=== PATIENT | male | born 1965 | race Caucasian/White ===

== ENCOUNTER 2016-12-01 12:38 | Emergency (ER) | payer BC ==
[2016-12-01] MEDS ORDERED: Diphtheria,Pertussis(Acell),Tetanus Vaccine 0.5 ML SDV inactive IM ONE (13:07)
[2016-12-01] MEDS ORDERED: Lidocaine 1% 50 ML MDV SUBCUT STA (13:07)
--- NOTE | 2016-12-01 13:07 | EDM.PDOC ---
ED HPI Skin/Rash - General Chief Complaint: Laceration Stated Complaint: Left hand laceration Time Seen by Provider: 12/01/16 13:00 Source: Reports: Patient, RN notes reviewed History Limitations: Reports: No limitations - History of Present Illness INITIAL COMMENTS - FREE TEXT/NARRATIVE: 51 year old male presents to the ED with a laceration to thenar web between the thumb and index finger. He was laying gregor and accidentally cut his hand with a new razor blade. He has full range of motion to his thumb and index finger. Injury occurred shortly prior to arrival. Last tetanus is unknown. Patient was diaphoretic and pale in triage. He is diabetic. Bedside glucose was 74. Nursing staff provided apple juice and symptoms improved. 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) - Related Data Allergies Allergy/AdvReac Type Severity Reaction Status Date / Time gabapentin Allergy Edema Verified 12/01/16 12:52 Home Meds: Ambulatory Orders Medication Instructions Recorded Confirmed Cyclobenzaprine [Flexeril] 10 mg PO TID PRN 09/14/14 12/01/16 DULoxetine [Cymbalta] 30 mg PO DAILY 09/14/14 12/01/16 Diazepam [Valium] 5 mg PO DAILY 09/14/14 12/01/16 OXcarbazepine [Trileptal] 150 mg PO BID 09/14/14 12/01/16 Insulin Lispro [Humalog] 0 units SQ ASDIRECTED PRN 09/15/14 12/01/16 Omeprazole [Prilosec] 20 mg PO DAILY 09/15/14 12/01/16 Tresiba 1 dose SQ DAILY 12/01/16 12/01/16 Past Medical History Gastrointestinal History: Reports: GERD Musculoskeletal History: Reports: Arthritis, Other (see below) Other Musculoskeletal History: muscle spasms Neurological History: Reports: Other (see below) Other Neuro History: TBI 2009, valium taken for balance issues as a result of the TBI Endocrine/Metabolic History: Reports: Diabetes, type I - Past Surgical History Neurological Surgical History: Reports: C-Spine, Other (see below) Other Neurological Surgeries/Procedures: C6-C7 fusion Musculoskeletal Surgical History: Reports: Carpal tunnel, Other (see below) Other Musculoskeletal Surgeries/Procedures:: ulnar release Social & Family History - Family History Family Medical History: Noncontributory - Tobacco Use Smoking Status *Q: Current Every Day Smoker Years of Tobacco use: 30 Packs/Tins Daily: 0.5 Second Hand Smoke Exposure: Yes - Caffeine Use Caffeine Use: Reports: Coffee - Alcohol Use Days Per Week of Alcohol Use: 0 Number of Drinks Per Day: 0 Total Drinks Per Week: 0 - Recreational Drug Use Recreational Drug Use: No Drug Use in Last 12 Months: No ED ROS GENERAL - Review of Systems Review Of Systems: See Below Musculoskeletal: Reports: hand pain Skin: Reports: wound Neurological: Reports: No Symptoms. Denies: Numbness, Tingling, Weakness ED EXAM, SKIN/RASH Exam: See Below Exam Limited By: No limitations General Appearance: alert, WD/WN, no apparent distress Extremities: normal inspection, normal range of motion, non-tender, other (full ROM to thumb and index finger ) Neurological: alert, oriented, normal cognition, no motor/sensory deficits Skin: Warm, Dry, Normal color, Other (deep, linear, 2cm laceration to the thenar area of the left hand, between the thumb and index finger. ) ED SKIN PROCEDURES - Laceration/Wound Repair Left Hand Lac/wound length in cm: 2.5 Appearance: subcutaneous, linear, clean Distal NVT: neuro & vascular intact, no tendon injury Anesthetic type: local Local anesthesia - Lidocaine (Xylocaine): 1% plain Local anesthetic volume: 4cc Exploration/Debridement/Repair: wound explored, in a bloodless field, explored to base, no foreign material found Closed with: sutures Suture size: 4-0 # of sutures: 5 Suture type: nylon, interrupted, simple Sterile dressing applied: nurse Tetanus status addressed: Yes Complications: No Course - Vital Signs Last Recorded V/S: Last Vital Signs Temp 96 F 12/01/16 12:45 Pulse 52 L 12/01/16 14:05 Resp 16 12/01/16 14:05 BP 146/87 H 12/01/16 14:05 Pulse Ox 97 12/01/16 14:05 - Orders/Labs/Meds Orders: Active Orders 24 hr Category Date Time Status Vaccines to be Administered [RC] PER UNIT ROUTINE Care 12/01/16 13:07 Ordered Meds: Medications Discontinued Medications Generic Name Dose Route Start Last Admin Trade Name Freq PRN Reason Stop Dose Admin Diphtheria/Tetanus/Acell Pertussis 0.5 ml 12/01/16 13:07 12/01/16 13:14 Boostrix IM 12/01/16 13:08 0.5 ml .ONCE ONE Administration Lidocaine HCl 50 ml 12/01/16 13:07 12/01/16 13:16 Xylocaine 1% SUBCUT 12/01/16 13:08 50 ml NOW STA Administration Departure - Departure Time of Disposition: 13:44 Disposition: Home, Self-Care 01 Condition: good Clinical Impression: Laceration Instructions: Laceration Care, Adult, [id number] Referrals: Alisson Dougherty, [facility] [Primary Care Provider] - Forms: ED Department Discharge Additional Instructions: Laceration with suture repair Try to keep initial dressing in place for 24 hours After 24 hours, you can gently wash the wound with gentle soap and water Do not submerge the area in water until the sutures are out Apply antibiotic ointment and keep the wound covered for first 2-3 days then leave open to air Keep wound covered if there is a chance it can get dirty Sutures need to be removed in 7-10 days [facility] removes sutures for free. Their hours are 8am-6pm Friday through Friday. Return to clinic if signs or symptoms of infection arise, including increased redness, swelling, drainage, or fever Tylenol or Ibuprofen as needed for pain - My Orders Last 24 Hours: My Active Orders 12/01/16 13:07 Vaccines to be Administered [RC] PER UNIT ROUTINE - Assessment/Plan Last 24 Hours: My Active Orders 12/01/16 13:07 Vaccines to be Administered [RC] PER UNIT ROUTINE
[2016-12-01 14:29] VITALS: BP 146/87
== END 2016-12-01 13:53 | disposition home or self-care (01) ==
LOC: JD.ED 12:38
DX: S61.412A Laceration without foreign body of left hand, initial encounter (principal); W45.8XXA Other foreign body or object entering through skin, initial encounter; Z23 Encounter for immunization; Z79.899 Other long term (current) drug therapy; Z88.8 Allergy status to other drugs, medicaments and biological substances; K21.9 Gastro-esophageal reflux disease without esophagitis; M19.90 Unspecified osteoarthritis, unspecified site; E10.9 Type 1 diabetes mellitus without complications; Z98.890 Other specified postprocedural states; Z98.1 Arthrodesis status; F17.210 Nicotine dependence, cigarettes, uncomplicated
CPT/HCPCS: 12001; 12041; 82962; 90471; 90715; 99282; 99283-25

== ENCOUNTER 2017-04-09 09:36 | Day surgery (SDC) | payer BC ==
[~2017-04-09 09:36] MED LIST: Lactated Ringers 1,000 ML IV SCH; Lidocaine 1%/Sod Bicarbonate in NS 8.4% 1 ML Syringe PRN; Sodium Chloride 0.9% 10 ML Syringe FLUSH PRN
--- NOTE | 2017-04-09 10:01 | PCM.PREANE ---
Preanesthetic Assessment - Anesthesia/Transfusion/Family Hx Anesthesia History: Prior Anesthesia Without Reaction Family History of Anesthesia Reaction: No - Review of Systems General: No Symptoms Pulmonary: No Symptoms Cardiovascular: No Symptoms Gastrointestinal: No Symptoms Neurological: No Symptoms Other: Reports: None - Physical Assessment NPO Status Date: 04/08/17 NPO Status Time: 22:30 Pulse: 63 O2 Sat by Pulse Oximetry: 97 Respiratory Rate: 16 Blood Pressure: 147/72 Temperature: 37.1 C Height: 1.93 m Weight: 106.594 kg ASA Class: 2 Mental Status: Alert & Oriented x3 Airway Class: Mallampati = 2 Dentition: Reports: Normal Dentition Thyro-Mental Finger Breadths: 2 Mouth Opening Finger Breadths: 3 ROM/Head Extension: Full Lungs: Clear to Auscultation, Normal Respiratory Effort Cardiovascular: Regular Rate, Regular Rhythm - Allergies Allergies/Adverse Reactions: Allergies Allergy/AdvReac Type Severity Reaction Status Date / Time gabapentin Allergy Edema Verified 04/08/17 15:31 - Acknowledgements Anesthesia Type Planned: MAC Pt an Appropriate Candidate for the Planned Anesthesia: Yes Alternatives and Risks of Anesthesia Discussed w Pt/Guardian: Yes Pt/Guardian Understands and Agrees with Anesthesia Plan: Yes PreAnesthesia Questionnaire HEENT History: Reports: Impaired Vision Cardiovascular History: Reports: None Respiratory History: Reports: None Gastrointestinal History: Reports: GERD Genitourinary History: Reports: None 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 Musculoskeletal History: Reports: Arthritis, Other (See Below) Other Musculoskeletal History: muscle spasms Neurological History: Reports: Migraines, Other (See Below) Other Neuro History: TBI 2009, valium taken for balance issues as a result of the TBI Psychiatric History: Reports: Anxiety, Depression Endocrine/Metabolic History: Reports: Diabetes, Type I Hematologic History: Reports: None Immunologic History: Reports: None Oncologic (Cancer) History: Reports: None Dermatologic History: Reports: Other (See Below) Other Dermatologic History: sebaceous cyst, skin nodule, seborrheic keratosis - Past Surgical History Other Head Surgeries/Procedures: Bilateral frontal bleed from Fall in 2009 HEENT Surgical History: Reports: Oral Surgery Cardiovascular Surgical History: Reports: None Respiratory Surgical History: Reports: None GI Surgical History: Reports: None Neurological Surgical History: Reports: C-Spine (C6-C7), Other (See Below) Other Neurological Surgeries/Procedures: C6-C7 fusion Musculoskeletal Surgical History: Reports: Carpal Tunnel, Other (See Below) Other Musculoskeletal Surgeries/Procedures:: Left distal fracture wrist, bilateral carpal tunnel release and ulnar nerve release Oncologic Surgical History: Reports: None - SUBSTANCE USE Smoking Status *Q: Current Every Day Smoker Tobacco Use Within Last Twelve Months: Cigarettes Second Hand Smoke Exposure: Yes Days Per Week of Alcohol Use: 0 Number of Drinks Per Day: 0 Total Drinks Per Week: 0 Recreational Drug Use History: No - HOME MEDS Home Medications: Home Meds Cyclobenzaprine [Flexeril] 10 mg PO BID PRN 09/14/14 [History] DULoxetine [Cymbalta] 30 mg PO BID 09/14/14 [History] Diazepam [Valium] 5 mg PO BID PRN 09/14/14 [History] OXcarbazepine [Trileptal] 150 mg PO BID 09/14/14 [History] Omeprazole [Prilosec] 20 mg PO DAILY 09/15/14 [History] Insulin Aspart [NovoLOG] 1 dose SQ TID 04/08/17 [History] Insulin Degludec [Tresiba Flextouch U-100] 40 mg SQ QAM 04/08/17 [History] Rosuvastatin [Crestor] 10 mg PO DAILY 04/08/17 [History] - CURRENT (IN HOUSE) MEDS Current Meds: Current Medications Lactated Ringer's (Ringers, Lactated) 1,000 mls @ 125 mls/hr IV ASDIRECTED ANNETTE Stop: 04/09/17 23:00 Lidocaine/Sodium Bicarbonate (Buffered Lidocaine 1% In Ns 8.4%) 0.25 ml .XX ONETIME PRN PRN Reason: Prior to IV Start Stop: 04/09/17 18:00 Sodium Chloride (Saline Flush) 10 ml FLUSH ASDIRECTED PRN PRN Reason: Keep Vein Open Stop: 04/09/17 18:00 Discontinued Medications Fentanyl (Sublimaze) Confirm Administered Dose 100 mcg .ROUTE .STK-MED ONE Stop: 04/09/17 10:07 Lidocaine HCl (Xylocaine-Mpf 1%) Confirm Administered Dose 4 mls @ as directed .ROUTE .STK-MED ONE Stop: 04/09/17 10:06 Midazolam HCl (Versed 1 Mg/Ml) Confirm Administered Dose 2 mg .ROUTE .STK-MED ONE Stop: 04/09/17 10:07 Propofol (Diprivan 20 Ml) Confirm Administered Dose 200 mg .ROUTE .STK-MED ONE Stop: 04/09/17 10:06
[2017-04-09] MEDS ORDERED: Lidocaine 1% 4 ML ONE (10:05)
[2017-04-09] MEDS ORDERED: Propofol 200 MG/20 ML SDV ONE ×3 (10:05→12:05)
[2017-04-09] MEDS ORDERED: fentaNYL 100 MCG/2 ML SDV ONE (10:06)
[2017-04-09] MEDS ORDERED: Midazolam 1 MG/ML 2 ML SDV ONE (10:06)
[2017-04-09] MEDS ORDERED: 50% Dextrose in Water 50 ML Syringe IVPUSH ONE (10:12)
--- NOTE | 2017-04-09 12:07 | PCM.OPNOTE ---
- General Post-Op/Procedure Note Date of Surgery/Procedure: 04/09/17 Operative Procedure(s): Colonoscopy Findings: Uncomplicated internal hemorrhoids 3 column slightly prolapsed Pre Op Diagnosis: Screening colonoscopy Post-Op Diagnosis: Internal hemorrhoids uncomplicated Anesthesia Technique: MAC, Moderate Sedation Primary Surgeon: Keanu Ruiz Pathology: None EBL in mLs: 0 Complications: None Condition: Good Free Text/Narrative:: After adequate IV sedation and analgesia was obtained with monitoring the patient was placed on his left side. Perianal inspection digital rectal examination were performed and were unremarkable for prolapsed 3 column internal hemorrhoids which are uncomplicated. The prostate was normal. A lubricated colonoscope was inserted into the rectum then advanced to the cecum without difficulty. The bowel preparation was excellent. The cecum, ascending colon and transverse colons were endoscopically normal with no mass lesions or inflammatory changes seen. The descending colon was unremarkable as well. The sigmoid was unremarkable. The rectum in the retroflexed view revealed the prominent internal hemorrhoids. Air was removed as I finished the procedure which he tolerated well. Photographs were taken for the patient and for the medical record.
[2017-04-09 12:10] VITALS: BP 92/67
--- NOTE | 2017-04-09 12:10 | PCM48HPAN ---
Post Anesthesia Note - EVALUATION WITHIN 48HRS OF ANESTHETIC Vital Signs in Normal Range: Yes Patient Participated in Evaluation: Yes Respiratory Function Stable: Yes Airway Patent: Yes Cardiovascular Function Stable: Yes Hydration Status Stable: Yes Pain Control Satisfactory: Yes Nausea and Vomiting Control Satisfactory: Yes Mental Status Recovered: Yes
== END 2017-04-09 12:35 | disposition home or self-care (01) ==
LOC: JD.SDS 09:36
PROVIDERS: ATTEND Surgery
PROC: 0DJD8ZZ Inspection of Lower Intestinal Tract, Via Natural or Artificial Opening Endoscopic (ICD-10-PCS; principal; 2017-04-09)
DX: Z12.11 Encounter for screening for malignant neoplasm of colon (principal); K64.8 Other hemorrhoids; F41.9 Anxiety disorder, unspecified; F32.9 Major depressive disorder, single episode, unspecified; K21.9 Gastro-esophageal reflux disease without esophagitis; E10.9 Type 1 diabetes mellitus without complications; F17.210 Nicotine dependence, cigarettes, uncomplicated; Z88.8 Allergy status to other drugs, medicaments and biological substances; Z79.4 Long term (current) use of insulin; Z79.899 Other long term (current) drug therapy; Z98.890 Other specified postprocedural states
CPT/HCPCS: 45378; 82962; J2250; J3010; J7060; J7120; 00810; J2704